=== PATIENT | male | born 1985 | race Caucasian/White ===

== ENCOUNTER → 2024-10-22 12:29 | Outpatient (REF) | payer OTHER, SELFPAY | LOC: HWRAD 12:29 | PROVIDERS: ATTENDING PHYSICIAN Physician Assistant; FAMILY PHYSICIAN Family Medicine | DX: M25.559 Pain in unspecified hip (principal) | CPT/HCPCS: 73523 ==

== ENCOUNTER 2024-10-29 11:55 | Emergency (ER) | payer OTHER, SELFPAY ==
[2024-10-29 11:55] VITALS: BMI 26.6
[2024-10-29 11:58] VITALS: BP 179/106
[2024-10-29 12:35] LABS: Hematocrit 52.0 % (39.0-52.0); Hemoglobin 16.9 g/dL (13.0-18.0); Mean Corp Hgb Conc. 32.5 g/dL (33.0-37.0); Mean Corpuscular Volume 81.8 fL (80.0-94.0); Nucleated Red Blood Cells % 0 % (-); Red Cell Dist. Width 12.6 % (11.5-14.5)
[2024-10-29 12:57] VITALS: BP 142/96
[2024-10-29 12:58] LABS: ALT (SGPT) 19 U/L (0-50); AST (SGOT) 32 U/L (17-59); Albumin 5.2 g/dl (3.5-5.0); Alkaline Phosphatase 81 U/L (38-126); Blood Urea Nitrogen 17 mg/dl (9-20); Calcium 9.6 mg/dl (8.4-10.2); Carbon Dioxide 22 mmol/L (22-30); Chloride 105 mmol/L (98-107); Glucose 104 mg/dl (70-99); Potassium 4.0 mmol/L (3.5-5.1); Sodium 139 mmol/L (135-145); Total Protein 7.9 g/dl (6.3-8.2); eGFR > 60.00
[2024-10-29 13:07] LABS: Troponin I < 0.012 ng/ml
[2024-10-29 14:00] VITALS: BP 132/84
--- NOTE | 2024-10-29 14:27 | ED.GENMED ---
History of Present Illness
General
Chief Complaint: Heart Rate Problem
Time Seen by Provider: 10/29/24 14:04
History of Present Illness
History of Present Illness:
39-year-old presents to the emergency department for evaluation of heart palpitations associated with clamminess', tingling hands, and a sensation of shortness of breath. Occurred while working at his desk, felt that the symptoms resolved rapidly
however occurred again within the next 30 minutes. Has been asymptomatic in the ED. No history of similar. Denies any illicit substance use, stimulant use, or chest pain associated with this.
Past History
Past History
ED Past Medical History: None
ED Past Surgical History: None
Social History
Tobacco: Non-smoker
Alcohol: Occasional
Living: with family
Employment: Employed
Review of Systems
Review of Systems
Allergies reviewed?: Yes
All Other Systems: ROS reviewed and negative except as documented in HPI and ROS
Phy Exam
Physical Exam
Physical Exam:
GEN: Well appearing, NAD, WDWN
HEENT: Oral mucosa moist, no scleral icterus
Cardiac: Regular rate and Rhythm, no murmurs
Lung: No respiratory distress, no tachypnea
MSK: No gross deformity or injuries
Skin: Good color, no pallor or jaundice, no rashes
Neuro: AO x3, moves all extremities freely
Psych: Calm, cooperative
Course
Orders/Labs/Results
Orders:
Orders
10/29/24 12:00
Electrocardiogram (*1) Urgent
Reason for Study: Chest Pain
Cardiac Monitoring- Treatment ONCE
EKG- Treatment ONCE
IV Insert/Care/Rem.- Treatment PRN
O2 Therapy [RESP] Urgent
Titrate/Wean O2 to maintain O2 sat greater than (%): 90
Special Instructions: Maintain sats >/=90%
Pulse Ox/spot Check [RESP] Urgent
Quantity: 1
Special Instructions: ON ROOM AIR
10/29/24 12:13
Complete Blood Count/With Diff Urgent
Comprehensive Metabolic Panel Urgent
TSH Urgent
Comment: ADD ON
Troponin I Urgent
10/29/24 14:27
Add On- LAB Urgent
Tests Added?: TSH
Abnormal Lab Results
10/29/24
12:13
RBC 6.36 H 10^6/uL
(4.70-6.10)
MCH 26.6 L pg
(27.0-31.0)
MCHC 32.5 L g/dL
(33.0-37.0)
Absolute Monos (auto) 0.7 H 10^3/uL
(0.1-0.6)
Monocytes % 9.6 H %
(1.7-9.3)
Glucose 104 H mg/dl
(70-99)
Albumin 5.2 H g/dl
(3.5-5.0)
10/29/24 12:13
10/29/24 12:13
Vital Signs
Initial and Last Documented VS:
Initial Vital Signs
Temp Pulse Resp BP Pulse Ox
98.4 F 116 16 179/106 99
10/29/24 11:58 10/29/24 11:58 10/29/24 11:58 10/29/24 11:58 10/29/24 11:58
Last Documented Vital Signs
Temp Pulse Resp BP Pulse Ox
98.5 F 73 23 132/84 96
10/29/24 12:00 10/29/24 14:00 10/29/24 14:00 10/29/24 14:00 10/29/24 14:27
MDM/Problems Addressed
MDM/Problems Addressed:
EKG shows a sinus tachycardia with no other acute abnormalities. Labs are reassuring. Brief at this time palpitations concerning represent cardiac dysrhythmia however patient has been stable here. Given that this is his first event of such
symptoms would not recommend cardiology follow-up unless symptoms recur. He does have an activity monitor to monitor heart rates at home.
*Pulse Oximetry
SaO2: 96
Oxygen Mode of Delivery: Room air
Patient hypoxic: no
*Critical Care Note
Total Time (30-74mins, 75-104mins- exclusive of procedures): Not Applicable
ED Attending Note
-
Portions of this chart may have been created with voice recognition software.� Occasional wrong word or��sound alike� substitutions may have occurred due to the inherent limitations of voice recognition software.
Discharge Plan
Departure
Patient Disposition: Home (Routine Discharge)
Date of Disposition: 10/29/24
Time of Disposition: 14:29
Patient with high blood pressure during this ER visit?: No
Discharge Problem:
Heart palpitations
Instructions: Palpitations (DC)
Prescriptions:
No Action
ibuprofen 800 MG tablet
800 mg PO Q6HPRN PRN (Reason: pain. take with food.) Qty: 30 0RF
Referrals:
Devon Bran, [Family Provider, Family Practice]
Activity Restrictions/Additional Instructions:
If you have recurrence please let me know and we will help facilitate a cardiology follow-up visit for you
You can try to monitor heart rates on your [employer] watch as rates over 120 will be suspicious for cardiac arrhythmia particularly when you are at rest
Interventions
Interventions:
*Risk Screen - Suicide Last Done: 10/29/24 11:58
*General Assessment Last Done: 10/29/24 11:58
*Neglect/Abuse Screening Last Done: 10/29/24 11:58
*Nursing Disposition Last Done: 10/29/24 14:37
ED- Cardiac Assessment Last Done: 10/29/24 13:12
ED- Pulmonary Assessment Last Done: 10/29/24 13:12
Discharge Date and Time
Print Language: OCCITAN
[2024-10-29 16:02] LABS: TSH 2.42 uIU/ml (0.47-4.68)
== END 2024-10-29 14:37 | disposition home or self-care (01) ==
LOC: EMR 11:55
PROVIDERS: Student in an Organized Health Care Education/Training Program; EMERGENCY PHYSICIAN Emergency Medicine; FAMILY PHYSICIAN Family Medicine
DX: R00.2 Palpitations (principal); R00.0 Tachycardia, unspecified; R20.2 Paresthesia of skin
CPT/HCPCS: 99284; 80053; 84443; 84484; 85025; 93005